=== PATIENT | male | born 1985 | race American Indian/Alaskan Native ===

== ENCOUNTER 2017-03-16 07:50 | Emergency (ER) | payer OTHER ==
[2017-03-16 08:26] LABS: Hemoglobin 13.6 gm/dl (11.8-15.2); Mean Corpuscular HGB Conc 34 % (32-34); Mean Corpuscular Hemoglobin 29 pg (28-32); Mean Corpuscular Volume 86 fl (84-94); Platelet Count 224 K/mm3 (140-440); Red Blood Count 4.66 M/mm3 (3.65-5.03); Red Cell Distribution Width 14.5 % (13.2-15.2)
[2017-03-16 08:32] LABS: White Blood Count 23.2 K/mm3 (4.5-11.0)
[2017-03-16 08:33] LABS: Bilirubin,Urine NEG (Negative); Blood,Urine SM (Negative); Ketones,Urine TR mg/dL (Negative); Leukocyte Esterase,Urine NEG (Negative); Mucus,Urine FEW /HPF; Nitrite,Urine NEG (Negative)
[2017-03-16 08:36] LABS: Anion Gap 20 mmol/L; BUN/Creatinine Ratio 11.25; Blood Urea Nitrogen 9 mg/dL (9-20); Calcium 9.5 mg/dL (8.4-10.2); Carbon Dioxide 22 mmol/L (22-30); Chloride 97.9 mmol/L (98-107); Glucose 109 mg/dL (75-100); Potassium 3.3 mmol/L (3.6-5.0); Sodium 137 mmol/L (137-145)
[2017-03-16 09:06] LABS: Basophils % (Manual) 0 % (0.0-1.8); Blastocytes % (Manual) 0 %; Eosinophils % (Manual) 0 % (0.0-4.3)
[2017-03-16 09:07] LABS: Diff Status Complete; RBC Morphology Normal
[2017-03-16] MEDS ORDERED: ZOFRAN IV ONE (10:06)
[2017-03-16] MEDS ORDERED: TORADOL IV ONE (10:06)
[2017-03-16] MEDS ORDERED: NACL 0.9% 1000 ML 1,000 ML IV ONE ×2 (10:06→12:32)
--- NOTE | 2017-03-16 10:09 | XRay Report ---
CHEST 2 VIEWS INDICATION: Shortness of breath. COMPARISON: None similar. FINDINGS: PA and lateral chest radiographs demonstrate approximately 6.5 cm pneumonia in the right lower lobe posteriorly. Clear remainder lungs. No pleural effusions or CHF. Normal cardiomediastinal silhouette. Intact bones. CONCLUSION: Right lower lobe pneumonia, as described. Followup to complete clearing after adequate conservative treatment recommended. Thank you for the opportunity to participate in this patient's care.
[2017-03-16] MEDS ORDERED: K-DUR PO ONE (10:47)
[2017-03-16] MEDS ORDERED: LEVAQUIN 750MG/150ML 750 MG/150 ML BAG IV ONE (10:47)
[2017-03-16] MEDS ORDERED: VALIUM IV ONE (12:32)
[2017-03-16] MEDS ORDERED: MOTRIN PO ONE (14:37)
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
[2017-03-16 18:07] VITALS: BP 124/79
== END 2017-03-16 19:09 | disposition home or self-care (01) ==
LOC: ED 07:50
DX: J18.1 Lobar pneumonia, unspecified organism (principal); E86.0 Dehydration; E87.6 Hypokalemia; F41.9 Anxiety disorder, unspecified; J02.9 Acute pharyngitis, unspecified; D72.829 Elevated white blood cell count, unspecified; R11.2 Nausea with vomiting, unspecified; F17.200 Nicotine dependence, unspecified, uncomplicated
CPT/HCPCS: 36415; 71020; 80048; 81001; 82140; 82805; 85007; 85025; 87040; 87086; 96361; 96365; 96375; 99284; J1885; J1956; J2405; J3360; J7030